=== PATIENT | female | born 2000 | race Caucasian/White ===

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

== ENCOUNTER 2019-05-08 14:45 | Emergency (ER) | payer OTHER ==
[~2019-05-08 14:45] MED LIST: FLUC100T7 PO; ONDA4TAB10 SL; OSEL75CA PO
[2019-05-08 14:55] VITALS: BP 129/101
[2019-05-08] MEDS ORDERED: IV NORMAL SALINE 1,000ML 1,000 ML IV SCH (15:00)
[2019-05-08] MEDS ORDERED: ONDANSETRON PF 4 MG/2 ML VIAL. IV ONE (15:15)
[2019-05-08] MEDS ORDERED: PANTOPRAZOLE IV 40 MG VIAL. IVP ONE (15:15)
[2019-05-08 15:19] LABS: BASO % 1 % (0-3); EOS % 1 % (0-3); LYMPH % 34 % (24-48); MEAN CORPUSCULAR HEMOGLOBIN 31 pg (25-35); MEAN CORPUSCULAR HGB CONC 34 g/dL (31-37); MEAN CORPUSCULAR VOLUME 92 fL (79-100); MONO # 0.6 x10^3/uL (0.0-1.1); MONO % 10 % (0-9); NEUT # 3.3 x10^3uL (1.8-7.7); NEUT % 55 % (31-73); PLATELET COUNT 261 x10^3/uL (140-400); RED BLOOD COUNT 4.48 x10^6/uL (3.50-5.40); RED CELL DISTRIBUTION WIDTH 12.9 % (11.5-14.5); WHITE BLOOD COUNT 5.9 x10^3/uL (4.0-11.0)
[2019-05-08 15:27] LABS: ALBUMIN 4.5 g/dL (3.4-5.0); ALBUMIN/GLOBULIN RATIO 1.4 (1.0-1.7); CALCIUM 9.8 mg/dL (8.5-10.1); CREATININE 0.7 mg/dL (0.6-1.0); GFR 106.7; POTASSIUM 3.8 mmol/L (3.5-5.1); TOTAL BILIRUBIN 0.5 mg/dL (0.2-1.0); TOTAL PROTEIN 7.8 g/dL (6.4-8.2)
[2019-05-08 15:31] LABS: AMORPHOUS SEDIMENT,UR PRESENT /HPF; BACTERIA,URINE FEW /HPF (0-FEW); BILIRUBIN,URINE NEG (NEG); CLARITY,URINE HAZY; COLOR,URINE YELLOW; GLUCOSE,URINE NEG (NEG); NITRITE,URINE NEG (NEG); RBC,URINE 0 /HPF (0-2); SQUAMOUS EPITHELIAL CELL,UR MOD /LPF; UROBILINOGEN,URINE 0.2 mg/dL (0.2 mg/dL)
[2019-05-08] MEDS ORDERED: IOHEXOL 300 MG/ML 75 ML VIAL. IV ONE (16:00)
--- NOTE | 2019-05-08 16:49 | RAD ---
CT ABD PELV W/ IV CONTRST ONLY Indication: Abdominal pain for 3 months radiating to the left lower quadrant, nausea Technique: Postcontrast CT imaging was performed of the abdomen pelvis, multiplanar reconstruction images submitted. No oral contrast was given. One or more of the following individualized dose reduction techniques were utilized for this examination: 1. Automated exposure control 2. Adjustment of the mA and/or kV according to patient size 3. Use of iterative reconstruction technique. Comparison: None Findings: There is some motion degradation. There is no abnormality of the limited visualized lung bases. Gallbladder is present without obvious intraluminal abnormality by CT. There is periportal edema diffusely. Both kidneys enhance, no hydronephrosis. Inferior vena cava and hepatic veins are not opacified with contrast during exam. Portal vein is patent. There is no adrenal nodularity. No focal abnormality is identified of the spleen or pancreas. Evaluation of bowel is limited without oral contrast. Bowel is not significantly dilated. No free air is identified. There is minimal free fluid in the pelvis. There is hypodense left adnexal lesion with apparent fluid fluid level left about 4 cm AP by 3.6 cm transverse by 4.3 cm cc. There is also hypodense lesion of the right adnexal region about 2.8 cm AP by 2.4 cm transverse by 3 cm cc, also probably tiny dependent fluid fluid level. There is some heterogeneity of the cervix and uterus. There is mild distention of urinary bladder. Appendix cannot be confidently identified on this exam. IMPRESSION: 1. There are hypodense foci of the adnexal regions bilaterally left greater than right with internal fluid fluid levels which may be due to sequela of complex or hemorrhagic cysts. Endometriomas would be included in differential considerations. There is minimal nonspecific free fluid in the pelvis. The is nonspecific heterogeneity of the uterus and cervix. 2. There is nonspecific periportal edema. 3. Appendix cannot be confidently identified on this exam. Electronically signed by: Yao Sorto MD (05/08/2019 4:46 PM) [id number]
--- NOTE | 2019-05-08 17:03 | PHYS DOC ---
Past History Past Medical History: No Pertinent History Past Surgical History: No Surgical History Alcohol Use: None Drug Use: None Adult General Chief Complaint Chief Complaint: ABDOMINAL PAIN HPI HPI Patient is a 18-year-old female who presents with complaint of left and mid upper abdominal pain that has been intermittent for the last several weeks. Patient indicates that pain is gotten worse recently and was recently started on Zantac but states that symptoms are not improving. Patient indicates that she has taken ibuprofen on a daily basis for well over a year. She admits to nausea but is had no vomiting. She denies any dark stools. She rates pain as moderate. She states that nothing is improving the pain.[] Review of Systems Review of Systems Constitutional: Denies fever or chills [] Respiratory: Denies cough or shortness of breath [] Cardiovascular: No additional information not addressed in HPI [] GI: Complains of upper abdominal pain with nausea. Denies vomiting or diarrhea [] Integument: Denies rash or skin lesions [] Neurologic: Denies headache, focal weakness or sensory changes [] All other systems were reviewed and found to be within normal limits, except as documented in this note. Current Medications Current Medications Current Medications Medications (Trade) Dose Ordered Sig/Gage Start Time Stop Time Status Last Admin Dose Admin Iohexol (Omnipaque 300 Mg/ml) 75 ml 1X ONCE 05/08/19 16:00 05/08/19 16:01 DC 05/08/19 16:00 75 ML Ondansetron HCl (Zofran) 4 mg 1X ONCE 05/08/19 15:15 05/08/19 15:16 DC 05/08/19 15:15 4 MG Pantoprazole Sodium (Protonix Vial) 40 mg 1X ONCE 05/08/19 15:15 05/08/19 15:16 DC 05/08/19 15:15 40 MG Sodium Chloride 1,000 ml @ 1,000 mls/hr Q1H 05/08/19 15:00 05/08/19 15:59 DC 05/08/19 15:00 1,000 MLS/HR Allergies Allergies Allergies Coded Allergies Type Severity Reaction Last Updated Verified No Known Drug Allergies 11/16/17 No Physical Exam Physical Exam Constitutional: Well developed, well nourished, no acute distress, non-toxic marita earance. [] HENT: Normocephalic, atraumatic, bilateral external ears normal, oropharynx moist, no oral exudates, nose normal. [] Eyes: PERRLA, EOMI, conjunctiva normal, no discharge. [] Neck: Normal range of motion, no tenderness, supple, no stridor. [] Cardiovascular:Heart rate regular rhythm, no murmur [] Lungs & Thorax: Bilateral breath sounds clear to auscultation [] Abdomen: Bowel sounds normal, soft, with epigastric and left upper quadrant tenderness. [] Skin: Warm, dry, no erythema, no rash. [] Extremities: No tenderness, no cyanosis, no clubbing, ROM intact, no edema. [] Neurologic: Alert and oriented X 3, no focal deficits noted. [] Current Patient Data Vital Signs Vital Signs Date Time Temp Pulse Resp B/P (MAP) Pulse Ox O2 Delivery O2 Flow Rate FiO2 05/08/19 14:55 86 18 96 Room Air Lab Results Laboratory Tests Test 05/08/19 14:50 05/08/19 15:09 05/08/19 15:22 White Blood Count 5.9 x10^3/uL (4.0-11.0) Red Blood Count 4.48 x10^6/uL (3.50-5.40) Hemoglobin 14.0 g/dL (12.0-15.5) Hematocrit 41.0 % (36.0-47.0) Mean Corpuscular Volume 92 fL (79-100) Mean Corpuscular Hemoglobin 31 pg (25-35) Mean Corpuscular Hemoglobin Concent 34 g/dL (31-37) Red Cell Distribution Width 12.9 % (11.5-14.5) Platelet Count 261 x10^3/uL (140-400) Neutrophils (%) (Auto) 55 % (31-73) Lymphocytes (%) (Auto) 34 % (24-48) Monocytes (%) (Auto) 10 % (0-9) H Eosinophils (%) (Auto) 1 % (0-3) Basophils (%) (Auto) 1 % (0-3) Neutrophils # (Auto) 3.3 x10^3uL (1.8-7.7) Lymphocytes # (Auto) 2.0 x10^3/uL (1.0-4.8) Monocytes # (Auto) 0.6 x10^3/uL (0.0-1.1) Eosinophils # (Auto) 0.0 x10^3/uL (0.0-0.7) Basophils # (Auto) 0.0 x10^3/uL (0.0-0.2) Sodium Level 140 mmol/L (136-145) Potassium Level 3.8 mmol/L (3.5-5.1) Chloride Level 104 mmol/L (98-107) Carbon Dioxide Level 28 mmol/L (21-32) Anion Gap 8 (6-14) Blood Urea Nitrogen 11 mg/dL (7-20) Creatinine 0.7 mg/dL (0.6-1.0) Estimated GFR (Cockcroft-Gault) 106.7 BUN/Creatinine Ratio 16 (6-20) Glucose Level 75 mg/dL (70-99) Calcium Level 9.8 mg/dL (8.5-10.1) Total Bilirubin 0.5 mg/dL (0.2-1.0) Aspartate Amino Transferase (AST) 14 U/L (15-37) L Alanine Aminotransferase (ALT) 19 U/L (14-59) Alkaline Phosphatase 46 U/L (46-116) Total Protein 7.8 g/dL (6.4-8.2) Albumin 4.5 g/dL (3.4-5.0) Albumin/Globulin Ratio 1.4 (1.0-1.7) Lipase 100 U/L (73-393) Urine Collection Type Unknown Urine Color Yellow Urine Clarity Hazy Urine pH 6.0 Urine Specific [place] 1.015 Urine Protein Neg (NEG-TRACE) Urine Glucose (UA) Neg mg/dL (NEG) Urine Ketones (Stick) Neg mg/dL (NEG) Urine Blood Neg (NEG) Urine Nitrite Neg (NEG) Urine Bilirubin Neg (NEG) Urine Urobilinogen Dipstick 0.2 mg/dL (0.2 mg/dL) Urine Leukocyte Esterase Trace (NEG) Urine RBC 0 /HPF (0-2) Urine WBC 1-4 /HPF (0-4) Urine Squamous Epithelial Cells Mod /LPF Urine Amorphous Sediment Present /HPF Urine Bacteria Few /HPF (0-FEW) Urine Mucus Slight /LPF POC Urine HCG, Qualitative hcg negative (Negative) EKG EKG [] Radiology/Procedures Radiology/Procedures [] Impressions: PROCEDURE: CT ABD PELV W/ IV CONTRST ONLY CT ABD PELV W/ IV CONTRST ONLY Indication: Abdominal pain for 3 months radiating to the left lower quadrant, nausea Technique: Postcontrast CT imaging was performed of the abdomen pelvis, multiplanar reconstruction images submitted. No oral contrast was given. One or more of the following individualized dose reduction techniques were utilized for this examination: 1. Automated exposure control 2. Adjustment of the mA and/or kV according to patient size 3. Use of iterative reconstruction technique. Comparison: None Findings: There is some motion degradation. There is no abnormality of the limited visualized lung bases. Gallbladder is present without obvious intraluminal abnormality by CT. There is periportal edema diffusely. Both kidneys enhance, no hydronephrosis. Inferior vena cava and hepatic veins are not opacified with contrast during exam. Portal vein is patent. There is no adrenal nodularity. No focal abnormality is identified of the spleen or pancreas. Evaluation of bowel is limited without oral contrast. Bowel is not significantly dilated. No free air is identified. There is minimal free fluid in the pelvis. There is hypodense left adnexal lesion with apparent fluid fluid level left about 4 cm AP by 3.6 cm transverse by 4.3 cm cc. There is also hypodense lesion of the right adnexal region about 2.8 cm AP by 2.4 cm transverse by 3 cm cc, also probably tiny dependent fluid fluid level. There is some heterogeneity of the cervix and uterus. There is mild distention of urinary bladder. Appendix cannot be confidently identified on this exam. IMPRESSION: 1. There are hypodense foci of the adnexal regions bilaterally left greater than right with internal fluid fluid levels which may be due to sequela of complex or hemorrhagic cysts. Endometriomas would be included in differential considerations. There is minimal nonspecific free fluid in the pelvis. The is nonspecific heterogeneity of the uterus and cervix. 2. There is nonspecific periportal edema. 3. Appendix cannot be confidently identified on this exam. Electronically signed by: Yao Sorto MD (05/08/2019 4:46 PM) Course & Med Decision Making Course & Med Decision Making Pertinent Labs and Imaging studies reviewed. (See chart for details) [] Dragon Disclaimer Dragon Disclaimer This electronic medical record was generated, in whole or in part, using a voice recognition dictation system. Departure Departure: Impression: Primary Impression: Gastritis Additional Impression: Abnormal CT scan, gastrointestinal tract Disposition: HOME, SELF-CARE Condition: STABLE Referrals: MELBA MARTI MD (PCP) Patient Instructions: Gastritis, Adult Scripts Pantoprazole Sodium (PROTONIX) 40 Mg Tablet.dr 1 TAB PO DAILY for gastritis, #30 TAB Prov: LORE PERRY Jr. DO 05/08/19 Problem Qualifiers Primary Impression: Gastritis Gastritis type: unspecified gastritis Chronicity: unspecified Gastritis bleeding: without bleeding Qualified Codes: K29.70 - Gastritis, unspecifi ed, without bleeding LORE PERRY Jr. DO May 08, 2019 17:03
[2019-05-08] MEDS ORDERED: PANT40TA3 PO (17:22)
== END 2019-05-08 17:27 | disposition home or self-care (01) ==
LOC: ER 14:45
DX: K29.70 Gastritis, unspecified, without bleeding (principal); R93.3 Abnormal findings on diagnostic imaging of other parts of digestive tract
CPT/HCPCS: 36415; 74177; 80053; 81001; 81025; 83690; 85025; 87086; 96361; 96374; 96375; 99285; C9113; J2405; Q9967; J7030

== ENCOUNTER → 2019-06-09 | Outpatient (CLI) | payer OTHER ==
[~2019-06-09] MED LIST changes: +PANT40TA3 PO
--- NOTE | 2019-06-09 15:43 | RAD ---
CLINICAL HISTORY: Abnormal CT, periportal edema on prior CT. COMPARISON: CT 05/08/2019 TECHNIQUE: Limited ultrasound examination of the right upper quadrant of the abdomen was performed FINDINGS: Liver: The liver measures 14 cm in length in the right mid clavicular line. Hepatic echogenicity is normal and the margin is smooth. There is no focal abnormality of the liver. Portal and hepatic venous flow is seen. Gallbladder/Biliary: The gallbladder is normal in appearance without evidence for cholelithiasis. There is no wall thickening or pericholecystic fluid. There is no pain with direct transducer pressure over the gallbladder.The common bile duct measures 0.3 cm. The right kidney measures 10.3 cm in bipolar length. No focal renal lesion. Normal renal cortical echogenicity. No hydronephrosis. There is no free fluid in the subhepatic space. IMPRESSION: 1. Normal sonographic survey of the right upper quadrant. 2. The previously seen periportal edema is not identified on this ultrasound. Electronically signed by: Juan Carlos Wheat MD (06/09/2019 3:39 PM) [facility]
== END | disposition home or self-care (01) ==
LOC: US 07:53
PROVIDERS: ATTEND Internal Medicine Gastroenterology
DX: R93.89 Abnormal findings on diagnostic imaging of other specified body structures (principal)
CPT/HCPCS: 76705